=== PATIENT | female | born 1980 | race Caucasian/White ===

== ENCOUNTER 2017-04-08 23:49 | Emergency (ER) | payer SELFPAY ==
[~2017-04-08] VITALS: Ht 162.6 cm; Wt 71.0 kg
[2017-04-09] MEDS ORDERED: KETOROLAC 30MG/ML VIAL IM ONE (04:30)
[2017-04-09] MEDS ORDERED: ONDANSETRON 4MG ODT PO ONE (04:30)
[2017-04-09] MEDS ORDERED: LORAZEPAM 1MG TABLET PO ONE (04:30)
[2017-04-09] MEDS ORDERED: QUETIAPINE FUMARATE 100MG TABLET PO SCH (04:30)
[2017-04-09 06:06] VITALS: BP 138/78
== END 2017-04-09 06:33 | disposition home or self-care (01) ==
LOC: ER 23:49
DX: S93.402A Sprain of unspecified ligament of left ankle, initial encounter (principal); F41.8 Other specified anxiety disorders; F31.9 Bipolar disorder, unspecified; M77.32 Calcaneal spur, left foot; F17.200 Nicotine dependence, unspecified, uncomplicated; X58.XXXA Exposure to other specified factors, initial encounter; Y93.89 Activity, other specified; Y92.89 Other specified places as the place of occurrence of the external cause; Y99.8 Other external cause status
CPT/HCPCS: 73610; 81025; 96372; 99284; J1885; Q0162